=== PATIENT | male | born 2000 | race Caucasian/White ===

== ENCOUNTER 2023-11-03 11:29 | Emergency (ER) | payer MEDICAID ==
[~2023-11-03] VITALS: Ht 172.7 cm; Wt 69.0 kg
[2023-11-03 11:51] VITALS: BP 115/77; RESP 12; TEMP 98.4; O2SAT 97
[2023-11-03 11:55] VITALS: PULSE 80
[2023-11-03] MEDS ORDERED: DOXY100C5 MT (13:40)
[2023-11-03 13:44] LABS: CLARITY URINE CLEAR (CLEAR); COLOR URINE YELLOW (YELLOW); GLUCOSE URINE NEGATIVE (NEGATIVE); KETONES URINE NEGATIVE (NEGATIVE); LEUKOCYTE ESTERASE URINE NEGATIVE (NEGATIVE); NITRITE URINE NEGATIVE (NEGATIVE); OCCULT BLOOD URINE NEGATIVE (NEGATIVE); PROTEIN URINE NEGATIVE (NEGATIVE); SPECIFIC GRAVITY URINE 1.018 (1.005-1.030)
[2023-11-03] MEDS: DOXYCYCLINE HYCLATE 100MG CAPSULE PO ONE (13:59)
[2023-11-03] MEDS: CEFTRIAXONE SODIUM 500MG VIAL IM ONE (13:59)
== END 2023-11-03 14:12 | disposition home or self-care (01) ==
LOC: ER 11:29
DX: Z20.2 Contact with and (suspected) exposure to infections with a predominantly sexual mode of transmission (principal)
CPT/HCPCS: 81003; 87491; 87591; 99283